=== PATIENT | male | born 1995 | race Caucasian/White ===

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

== ENCOUNTER → 2017-09-21 | Outpatient (CLI) | payer MEDICARE, OTHER ==
[2012-08-03 10:20] VITALS: BP 111/63
[2017-09-21 14:46] LABS: BASO # 0.1 (0.02-0.10); EOS # 0.1 (0.04-0.40); EOS % 1.2 % (0.0-4.0); HEMATOCRIT 46.1 % (36.0-47.0); HEMOGLOBIN 15.8 g/dL (12.5-16.1); MEAN CELL VOLUME 96 fl (78-95); MEAN CORPUSCULAR HEMOGLOBIN 33 pg (26-32); MEAN CORPUSCULAR HGB CONC 34 g/dL (33-37); MEAN PLATELET VOLUME 8.9 fl (7.4-10.4); MONO # 0.5 (0.20-0.80); NEU # 2.3 (1.40-6.50); PLATELET COUNT 245 K/mm3 (130-400); RED CELL DISTRIBUTION WIDTH 12.8 % (11.5-14.5); WHITE BLOOD COUNT 4.9 K/mm3 (4.8-10.8)
[2017-09-21 14:50] LABS: ALBUMIN 4.7 g/dL (3.5-5.0); BUN/CREATININE RATIO 18.2 (6.0-26.0); CALCIUM 9.8 mg/dL (8.4-10.2); POTASSIUM 4.8 mmol/L (3.6-5.0); TOTAL BILIRUBIN 0.8 mg/dL (0.2-1.3); TOTAL PROTEIN 8.7 g/dL (6.3-8.2)
== END ==
LOC: VAS 14:00 → LAB 14:00
PROVIDERS: Nurse Practitioner Family
DX: E03.4 Atrophy of thyroid (acquired) (principal); Q90.9 Down syndrome, unspecified; I35.0 Nonrheumatic aortic (valve) stenosis

== ENCOUNTER 2018-03-16 15:15 | Outpatient (RCR) | payer OTHER ==
[2012-08-03 10:20] VITALS: BP 111/63
== END 2018-04-03 | disposition home or self-care (01) ==
LOC: SPEECH
DX: Q90.9 Down syndrome, unspecified (principal)

== ENCOUNTER 2018-06-01 15:15 | Outpatient (RCR) | payer OTHER ==
[2012-08-03 10:20] VITALS: BP 111/63
== END 2018-07-05 | disposition home or self-care (01) ==
LOC: SPEECH
DX: Q90.9 Down syndrome, unspecified (principal)

== ENCOUNTER 2018-09-14 14:00 | Outpatient (RCR) | payer MEDICARE ==
[2012-08-03 10:20] VITALS: BP 111/63
== END 2018-09-14 14:30 | disposition still patient (30) ==
LOC: PT 14:00
DX: M41.126 Adolescent idiopathic scoliosis, lumbar region (principal); M21.952 Unspecified acquired deformity of left thigh; Q90.9 Down syndrome, unspecified; M41.20 Other idiopathic scoliosis, site unspecified; I35.0 Nonrheumatic aortic (valve) stenosis

== ENCOUNTER → 2018-10-05 | Outpatient (CLI) | payer MEDICARE, OTHER ==
[2012-08-03 10:20] VITALS: BP 111/63
== END ==
LOC: LAB 11:40
DX: E03.9 Hypothyroidism, unspecified (principal)

== ENCOUNTER 2018-10-26 10:30 | Outpatient (RCR) | payer OTHER ==
[2012-08-03 10:20] VITALS: BP 111/63
== END 2018-11-01 | disposition still patient (30) ==
LOC: SPEECH
DX: Q90.9 Down syndrome, unspecified (principal)

== ENCOUNTER → 2019-11-05 | Outpatient (CLI) | payer OTHER ==
[2012-08-03 10:20] VITALS: BP 111/63
== END ==
LOC: LAB 10:11
DX: E03.9 Hypothyroidism, unspecified (principal)

== ENCOUNTER → 2020-12-02 | Outpatient (CLI) | payer MEDICARE | LOC: LAB 15:33 | DX: E03.9 Hypothyroidism, unspecified (principal) ==